=== PATIENT | female | born 1930 | race Caucasian/White ===

== ENCOUNTER → 2016-08-04 | Outpatient (CLI) | payer OTHER ==
[~2016-08-04] MED LIST: ACETAMINOPHEN650 M1 PO; ALBUTEROL17 GM INH; ARICEPT5 M1 PO; CAPOZIDE PO; COREG3.125 MG PO; COUMADIN5 MG PO; GLIPIZIDE10 MG PO; GLUCOTROL PO; LEVAQUIN PO; LISINOPRIL5 MG PO; LOVENOX80 MG/0.8 INJ; PROTONIX PO; XARELTO15 MG PO
--- NOTE | ~2016-08-04 | US77 ---
[facility] A Service of [facility] RADIOLOGY TEXT RESULTS PATIENT: CRISTINA JOSE LOCATION: [facility] : 28 UNIT #: [id number] AGE: [address]: Lucian Elena MD SEX: F ORDER DR: [id number] [facility] [address] [place], [place] [address] [id number] O MR#: [id number] Acc #: [id number] NAME: CRISTINA JOSE : 1930 SEX: F STUDY DATE/TIME: 08/04/2016 15:30 UNIT: [facility] ROOM: STUDY DESCRIPTION: US Kidney Bilateral Complete Attending Physician: Lucian Elena M.D. Ordering Physician: Lucian Elena M.D. Primary Care Physician: Celina Pineda M.D. MEDICAL IMAGING REPORT This report is preliminary unless electronic signature is present EXAM Renal ultrasound. DATE OF EXAM 08/04/2016 HISTORY Chronic kidney disease, stage 2. Follow up. History of diabetes. FINDINGS Right kidney measures 12.5 cm while the left kidney measures 12.3 cm in longitudinal dimensions. There is no evidence of hydronephrosis or nephrolithiasis. There are multiple bilateral renal cysts. The largest cyst on the right kidney measures 6.3 cm while the largest cyst on the left kidney measures 3.7 cm. No solid mass lesions are identified. There is increased renal cortical echogenicity characteristic of medical renal disease. Images of the bladder are normal. Incidental note is made of cholelithiasis. IMPRESSION 1. Multiple bilateral renal cysts. 2. Bilateral increase in renal cortical echogenicity characteristic of medical renal disease. No evidence of hydronephrosis. 3. Images of the bladder are normal. 4. Cholelithiasis. Dictated by... Aaron Brannon M.D. THIS IS AN ELECTRONICALLY VERIFIED REPORT Aaron Brannon M.D. at 08/05/2016 2:16 PM KRT/jt [facility] A Service of [facility] RADIOLOGY TEXT RESULTS PATIENT: CRISTINA JOSE LOCATION: [facility] #: [id number] : 28 UNIT #: [id number] AGE: [address]: Lucian Elena MD SEX: F ORDER DR: TD: 08/04/2016 21:51 JOB #: [id number] MEDICAL IMAGING REPORT COPY
== END | disposition home or self-care (01) ==
LOC: CWCC 15:16
DX: N18.2 Chronic kidney disease, stage 2 (mild) (principal); N28.1 Cyst of kidney, acquired; K80.20 Calculus of gallbladder without cholecystitis without obstruction
CPT/HCPCS: 76770

== ENCOUNTER → 2016-09-29 | Outpatient (CLI) | payer OTHER ==
[2016-09-29 10:55] LABS: BASOPHIL% 0.3 % (0-2.5); EOSINOPHIL# 0.4 X10e3 (0-0.7); EOSINOPHIL% 4.6 % (0.0-7.0); HEMATOCRIT 41.5 % (35.0-45.0); HEMOGLOBIN 13.5 gm/dL (12.0-16.0); MEAN CELL VOLUME 92.5 FL (83-96); MEAN CORPUSCULAR HGB CONC 32.5 g/dL (30-36); MEAN PLATELET VOLUME 8.4 FL (6.5-11.5); MONOCYTE# 0.7 X10e3 (0-1.0); MONOCYTE% 8.1 % (3.0-12.0); NEUTROPHIL# 5.6 X10e3 (1.5-7.1); PLATELET COUNT 181 X10e3 (140-420); RED BLOOD COUNT 4.49 X10e (3.90-5.30); RED CELL DISTRIBUTION WIDTH 13.3 % (11.0-15.5); WHITE BLOOD COUNT 8.7 X10e3 (4.0-10.5)
[2016-09-29 10:56] LABS: DIFF IND NO
[2016-09-29 10:59] LABS: URINE APPEARANCE CLOUDY; URINE BILIRUBIN NEG (NEG); URINE BLOOD 1+ (NEG); URINE COLOR YELLOW; URINE GLUCOSE NEG (NEG); URINE KETONE NEG (NEG); URINE LEUKOCYTE ESTERASE 2+ (NEG); URINE NITRATE POS (NEG); URINE PROTEIN 1+ (NEG); URINE SPECIFIC GRAVITY 1.024 (1.003-1.035)
[2016-09-29 11:01] LABS: URBCS1 AUWI 0-2 /[HPF] (0-2); URINE BACTERIA AUWI 4+ (NEGATIVE); URINE SQUAMOUS EPITHELIAL CELL OCC /[HPF]; UWBCS1 AUWI 50-100 (0-5)
[2016-09-29 11:20] LABS: CREATININE,RANDOM URINE 161 mg/dL; TOTAL PROTEIN,RANDOM URINE 66 mg/dl (<10)
[2016-09-29 11:23] LABS: BILIRUBIN,TOTAL 0.5 mg/dL (0.2-2.0); BUN/CREATININE RATIO 23.33; CREATININE SERUM 1.5 mg/dL (0.6-1.4); GLOM FILT RATE Estimated 31.2 mL/min (>60); POTASSIUM 4.4 mmol/L (3.5-5.1); PROTEIN TOTAL SERUM 7.3 g/dL (6.0-8.3)
== END | disposition home or self-care (01) ==
LOC: CLAB 10:19
PROVIDERS: Internal Medicine Nephrology
DX: N18.2 Chronic kidney disease, stage 2 (mild) (principal)
CPT/HCPCS: 36415; 80053; 81003; 82570; 84156; 85025